=== PATIENT | female | born 1945 | race Caucasian/White ===

== ENCOUNTER 2016-04-01 21:27 | Observation (INO) | payer OTHER ==
[~2016-04-01] VITALS: Ht 170.2 cm; Wt 87.8 kg
[2016-04-01] MEDS ORDERED: ESCI10TA17 PO (22:01)
[2016-04-01] MEDS ORDERED: ATOR-22 PO (22:01)
[2016-04-01] MEDS ORDERED: CLOP1TAB15 PO (22:01)
[2016-04-01] MEDS ORDERED: LEVO112T2 PO (22:01)
[2016-04-01] MEDS ORDERED: BUPR-79 PO (22:01)
[2016-04-01] MEDS ORDERED: GLUCTAB6 PO (22:02)
--- NOTE | 2016-04-01 22:14 | EMERGENCY ROOM VISIT NOTE ---
History Report prepared by Cheri: Jose Holly Under the Supervision of: Dr. Jose Bar M.D. First contact with patient: 21:59 Chief Complaint: STROKE SYMPTOMS Stated Complaint: NUMBNESS/TINGLING, HX OF STROKE Nursing Triage Summary: pt states she was in the shower and go water in her right eye then while brushing her teeth she got tingling to right lip area " like novacaine." no weakness or pain smile equal. ambulates and speaks without difficulty. History of Present Illness The patient is a 70 year old female who presents to the Emergency Room with complaints of an episode of stroke like symptoms occurring about 7 hours ago. She notes she was taking a shower and got water in her right eye. Afterwards, when she was brushing her teeth, she started to experience eye pain. She applied a cool washcloth but her eye felt hot. The patient denies any numbness but admits to some tingling around the right side of her lips. She also has a headache. She denies any chest pain, shortness of breath, or numbness or weakness in her arms or legs but notes a warm spot on the left lower leg. The patient reports a history of brain hemorrhage and TIA and takes Plavix. She is sometimes unsteady when walking. Her last fall was about a few months ago. Source of History: patient, family Onset: about 7 hours ago Position: other (global) Quality: other (stroke-like symptoms) Timing: other (episode) Associated Symptoms: + headache, + numbness (right side of lips), No SOB, No chest pain, No weakness Review of Systems See HPI for pertinent positives & negatives. A total of 10 systems reviewed and were otherwise negative. Past Medical & Surgical Medical Problems: (1) History of intracranial hemorrhage (2) History of stroke Old medical records were reviewed. Nurse's notes were reviewed and I agree with. Previous hemorrhagic CVA as well as TIA. on Plavix Family History No pertinent family history stated. Social History Smoking Status: Never Smoker Drug Use: none Marital Status: single Current/Historical Medications Scheduled Atorvastatin (Lipitor), 20 MG PO HS Bupropion (Wellbutrin Sr), 150 MG PO BID Clopidogrel (Plavix), 75 MG PO QAM Escitalopram (Lexapro), 10 MG PO DAILY Ymybmocgdib-Apzbaqckkba-Yaq-Vi (Flexi Joint), 1 TAB PO DAILY Levothyroxine Sodium (Synthroid), 112 MCG PO DAILYBB Allergies Coded Allergies: Erythromycin (Verified Allergy, Intermediate, N/V/ABD PAIN, 04/01/16) Physical Exam Vital Signs Date Time Temp Pulse Resp B/P Pulse Ox O2 Delivery O2 Flow Rate FiO2 04/01/16 23:15 67 19 160/96 98 Room Air 04/01/16 22:25 63 04/01/16 21:32 37.0 95 18 167/96 96 Room Air Physical Exam General: Non ill appearing female in no acute distress. Alert and oriented x3. Able to speak and swallow without difficulty. HEENT: Normal cephalic atraumatic. Pupils are equal round and reactive to light. Scleara anicteric. Extraocular movements are intact. Oropharynx is pink with moist mucous membranes. No swelling of the mouth lips or tongue. Neck: Supple with a midline trachea. No meningeal signs or stiffness, no JVD or bruits. No Stridor. Chest: Clear to auscultation bilaterally. No wheezes or rhonchi. No increased work of breathing. Heart: regular rate and rhythm. Abdomen: Soft nontender, nondistended without rebound guarding or rigidity. Extremities: No cyanosis clubbing or edema. No calf tenderness or assymetry Spine/Back. Non tender to palpation. No CVA tenderness Skin: Good turgor without rashes. Neurologic exam: Cranial nerves two through 12 are intact. Motor and sensation are intact and symmetrical throughout. Finger to nose intact; no pronator drift or tremor. Sensation intact to light touch around right lip but patient says she feels tingling. Able to ambulate without difficulty. Normal heel to toe. Negative Romberg. Medical Decision & Procedures ER Provider Diagnostic Interpretation: X ray results as stated below per my interpretation and radiologist interpretation. Other radiology results as stated below per my review and radiologist interpretation: CT OF THE HEAD WITHOUT CONTRAST FINDINGS: No acute intracranial hemorrhage, midline shift or mass effect is present. Encephalomalacia within the right parietal lobe suggests old infarct. Scattered white matter hypodensities suggest small vessel disease. There are no CT findings to suggest acute dural sinus thrombosis or acute territorial infarct. Ventricular system is normal. Basilar cisterns are patent. There are no extra-axial collections. Visualized portions of the sinuses and mastoid air cells are clear. There are no significant calvarial abnormalities. IMPRESSION: 1. No acute intracranial findings. 2. Old right parietal lobe infarct. 3. White matter hypodensities suggestive of small vessel disease. Electronically signed by: Fred Ruggiero M.D. 04/01/2016 10:39 PM Dictated Date/Time: 04/01/2016 10:35 PM CHEST ONE VIEW PORTABLE FINDINGS: Lung volumes are normal. No consolidation is identified. There is no pneumothorax or pleural effusion. Cardiac size is at the upper limits of normal. There is no evidence of pulmonary edema. IMPRESSION: No acute cardiopulmonary findings. Electronically signed by: Fred Ruggiero M.D. 04/01/2016 10:33 PM Dictated Date/Time: 04/01/2016 10:32 PM Laboratory Results 04/01/16 22:15 Red Blood Count 4.44, Mean Corpuscular Volume 86.5, Mean Corpuscular Hemoglobin 30.0, Mean Corpuscular Hemoglobin Concent 34.6, Mean Platelet Volume 9.8, Neutrophils (%) (Auto) 48.2, Lymphocytes (%) (Auto) 43.3, Monocytes (%) (Auto) 6.5, Eosinophils (%) (Auto) 1.4, Basophils (%) (Auto) 0.3, Neutrophils # (Auto) 4.86, Lymphocytes # (Auto) 4.36, Monocytes # (Auto) 0.66, Eosinophils # (Auto) 0.14, Basophils # (Auto) 0.03 04/01/16 22:15 Test 04/01/16 22:15 04/01/16 22:21 04/02/16 00:20 White Blood Count 10.08 K/uL (4.8-10.8) Red Blood Count 4.44 M/uL (4.2-5.4) Hemoglobin 13.3 g/dL (12.0-16.0) Hematocrit 38.4 % (37-47) Mean Corpuscular Volume 86.5 fL (80-100) Mean Corpuscular Hemoglobin 30.0 pg (25-34) Mean Corpuscular Hemoglobin Concent 34.6 g/dl (32-36) Platelet Count 223 K/uL (130-400) Mean Platelet Volume 9.8 fL (7.4-10.4) Neutrophils (%) (Auto) 48.2 % Lymphocytes (%) (Auto) 43.3 % Monocytes (%) (Auto) 6.5 % Eosinophils (%) (Auto) 1.4 % Basophils (%) (Auto) 0.3 % Neutrophils # (Auto) 4.86 K/uL (1.4-6.5) Lymphocytes # (Auto) 4.36 K/uL (1.2-3.4) Monocytes # (Auto) 0.66 K/uL (0.11-0.59) Eosinophils # (Auto) 0.14 K/uL (0-0.5) Basophils # (Auto) 0.03 K/uL (0-0.2) RDW Standard Deviation 41.9 fL (36.4-46.3) RDW Coefficient of Variation 13.1 % (11.5-14.5) Immature Granulocyte % (Auto) 0.3 % Immature Granulocyte # (Auto) 0.03 K/uL (0.00-0.02) Prothrombin Time 10.5 SECONDS (9.0-12.0) Prothromb Time International Ratio 1.0 (0.9-1.1) Activated Partial Thromboplast Time 28.9 SECONDS (21.0-31.0) Partial Thromboplastin Ratio 1.1 Anion Gap 8.0 mmol/L (3-11) Est Creatinine Clear Calc Drug Dose 62.7 ml/min Estimated GFR () 69.9 Estimated GFR (Non- 60.3 BUN/Creatinine Ratio 18.1 (10-20) Calcium Level 9.0 mg/dl (8.5-10.1) Total Bilirubin 0.3 mg/dl (0.2-1) Direct Bilirubin < 0.1 mg/dl (0-0.2) Aspartate Amino Transf (AST/SGOT) 16 U/L (15-37) Alanine Aminotransferase (ALT/SGPT) 20 U/L (12-78) Alkaline Phosphatase 104 U/L (45-117) Total Protein 7.4 gm/dl (6.4-8.2) Albumin 3.6 gm/dl (3.4-5.0) Lipase 447 U/L (73-393) Bedside Troponin I 0.000 ng/ml (0-0.045) Laboratory studies as stated above per my review. Medications Administered Medications (Trade) Dose Ordered Sig/Velia Route Start Time Stop Time Status Last Admin Dose Admin Aspirin (Aspirin Chew) 324 mg NOW STAT PO 04/01/16 23:28 04/01/16 23:29 DC 04/01/16 23:47 324 MG ECG Indication: other (stroke symptoms) Rate (beats per minute): 63 Rhythm: normal sinus Findings: RBBB (incomplete), other (LVH) Comparison ECG Date: no prior available ED Course 2199: Past medical records reviewed. The patient was evaluated in room A11A, and a complete history and physical examination were performed. 2328: Ordered Aspirin 324 mg PO. 2330: I reassessed the patient. She is feeling good but has some residual numbness around her mouth. 233: I spoke with Dr. Tucker about the patient's case. The patient will be further managed and evaluated for disposition. Medical Decision Differentials include CVA, ICH, TIA, electrolyte or metabolic abnormality, and infection. This patient comes in as described above. She was placed in room A 11. She's been having tingling in the right side of her face since this afternoon. She is multiple hours out and well outside of any TPA window. Additionally, her symptoms are very very mild and she's had a history of hemorrhagic CVA. She looks well on exam .she has no neurologic deficits with exception of some subjective tingling around her lips on the right side only and into the cheek. IV access was established, EKG was obtained as well as CAT scan head and chest x -ray. CAT scan of her head shows no acute findings. There is no acute electrolyte or metabolic abnormalities to explain her symptoms on her blood work. EKG does not show any acute ischemic changes or arrhythmia. Chest x-ray does not show CHF, pneumonia, or pneumothorax. She looks well. She was given chewable aspirin 325 mg. Her symptoms have gotten better but still persist I'm concerned she may have had a small stroke. She has not had any stroke workup for several years now and will likely need MRI and carotids and possibly further adjustment of her meds and anticoagulation. I did consult Dr. Tsai , who will see her in the ER, and admit her for these measures. Consults Time Called: [phone] Consulting Physician: Dr. Tucker Returned Call: [phone] Tucker about the patient's case. The patient will be further managed and evaluated for disposition. Impression Primary Impression: CVA (cerebral vascular accident) Additional Impression: Tingling Scribe Attestation The scribe's documentation has been prepared under my direction and personally reviewed by me in its entirety. I confirm that the note above accurately reflects all work, treatment, procedures, and medical decision making performed by me. Departure Information Dispostion Being Evaluated By Hospitalist Referrals Veronica Magana (PCP) Patient Instructions My [facility] Health Problem Qualifiers
--- NOTE | 2016-04-01 22:35 | DIAGNOSTIC IMAGING REPORT ---
CHEST ONE VIEW PORTABLE CLINICAL HISTORY: Chest pain. COMPARISON STUDY: Chest radiograph December 20, 2013. FINDINGS: Lung volumes are normal. No consolidation is identified. There is no pneumothorax or pleural effusion. Cardiac size is at the upper limits of normal. There is no evidence of pulmonary edema. IMPRESSION: No acute cardiopulmonary findings. Electronically signed by: Fred Ruggiero M.D. 04/01/2016 10:33 PM Dictated Date/Time: 04/01/2016 10:32 PM
[2016-04-01 22:38] LABS: BASO % 0.3 %; BASO ABS # 0.03 K/uL (0-0.2); COMPLETE YES; EOS % 1.4 %; HEMATOCRIT 38.4 % (37-47); IG% 0.3 %; LYMPH % 43.3 %; LYMPH ABS # 4.36 K/uL (1.2-3.4); MEAN CELL VOLUME 86.5 fL (80-100); MEAN CORPUSCULAR HGB CONC 34.6 g/dl (32-36); MEAN PLATELET VOLUME 9.8 fL (7.4-10.4); MONO % 6.5 %; NEUT % 48.2 %; PLATELET COUNT 223 K/uL (130-400); RED BLOOD COUNT 4.44 M/uL (4.2-5.4); WHITE BLOOD COUNT 10.08 K/uL (4.8-10.8)
--- NOTE | 2016-04-01 22:40 | DIAGNOSTIC IMAGING REPORT ---
CT OF THE HEAD WITHOUT CONTRAST CLINICAL HISTORY: Numbness and tingling. Evaluate for cerebrovascular accident. COMPARISON STUDY: No previous studies for comparison. CT DOSE: 638.56 mGycm TECHNIQUE: Helical axial images of the head were obtained without IV contrast. Automated exposure control was utilized for the study. FINDINGS: No acute intracranial hemorrhage, midline shift or mass effect is present. Encephalomalacia within the right parietal lobe suggests old infarct. Scattered white matter hypodensities suggest small vessel disease. There are no CT findings to suggest acute dural sinus thrombosis or acute territorial infarct. Ventricular system is normal. Basilar cisterns are patent. There are no extra-axial collections. Visualized portions of the sinuses and mastoid air cells are clear. There are no significant calvarial abnormalities. IMPRESSION: 1. No acute intracranial findings. 2. Old right parietal lobe infarct. 3. White matter hypodensities suggestive of small vessel disease. Electronically signed by: Fred Ruggiero M.D. 04/01/2016 10:39 PM Dictated Date/Time: 04/01/2016 10:35 PM
[2016-04-01 22:54] LABS: PARTIAL THROMBOPLASTIN RATIO 1.1; PROTHROMBIN TIME (PATIENT) 10.5 SECONDS (9.0-12.0)
[2016-04-01 22:55] LABS: ALT/SGPT 20 U/L (12-78); BLOOD UREA NITROGEN 17 mg/dl (7-18); BUN/CREATININE RATIO 18.1 (10-20); CARBON DIOXIDE 25 mmol/L (21-32); CHLORIDE 107 mmol/L (98-107); CREATININE 0.96 mg/dl (0.60-1.20); GLUCOSE 81 mg/dl (70-99); POTASSIUM 3.6 mmol/L (3.5-5.1); SODIUM 140 mmol/L (136-145)
[2016-04-01 22:58] LABS: ALKALINE PHOSPHATASE 104 U/L (45-117); AST/SGOT 16 U/L (15-37)
[2016-04-01] MEDS ORDERED: ASPIRIN 81 MG CHEW PO STA (23:28)
[2016-04-02] MEDS ORDERED: POTASSIUM CHLORIDE 10 MEQ TABCR PO STA (00:20)
[2016-04-02] MEDS ORDERED: LACTATED RINGER'S 1000ML 1,000 ML IV ONE (00:30)
[2016-04-02 00:42] LABS: MAGNESIUM 2.1 mg/dl (1.8-2.4)
[2016-04-02] MEDS ORDERED: IV FLUIDS COMPLETED PRN (01:30)
[2016-04-02] MEDS ORDERED: LORAZEPAM 2 MG/ML 1 ML VIAL IV PRN (01:45)
[2016-04-02] MEDS ORDERED: TRAMADOL HCL 50 MG TAB PO PRN (01:45)
[2016-04-02] MEDS ORDERED: ACETAMINOPHEN 325 MG TAB PO PRN (01:45)
[2016-04-02] MEDS ORDERED: ONDANSETRON INJ 2 MG/ML 2 ML VIAL IV PRN (01:45)
[2016-04-02] MEDS ORDERED: PHARMACIST DISCHARGE MED REC CONSULT PRN (01:45)
[2016-04-02] MEDS ORDERED: NITROGLYCERIN 0.4 MG SL PER TAB CHARGE SL PRN (01:45)
[2016-04-02] MEDS ORDERED: HYDROmorphone INJ 0.5 MG/0.5 ML SYR IV PRN (01:45)
[2016-04-02 04:00] VITALS: BP 124/70; PULSE 61; TEMP 36.3; O2SAT 96; Ht 170.2 cm; Wt 87.8 kg
[2016-04-02 05:55] LABS: BASO % 0.3 %; BASO ABS # 0.02 K/uL (0-0.2); COMPLETE YES; EOS % 2.1 %; HEMATOCRIT 37.1 % (37-47); IG% 0.1 %; LYMPH % 39.1 %; LYMPH ABS # 2.64 K/uL (1.2-3.4); MEAN CELL VOLUME 87.3 fL (80-100); MEAN CORPUSCULAR HEMOGLOBIN 29.6 pg (25-34); MEAN PLATELET VOLUME 9.8 fL (7.4-10.4); MONO % 7.7 %; NEUT % 50.7 %; PLATELET COUNT 198 K/uL (130-400); RED BLOOD COUNT 4.25 M/uL (4.2-5.4); WHITE BLOOD COUNT 6.76 K/uL (4.8-10.8)
[2016-04-02] MEDS ORDERED: LEVOTHYROXINE 112 MCG TAB PO SCH (06:00)
[2016-04-02 06:27] LABS: BUN/CREATININE RATIO 19.1 (10-20); CALCIUM 8.7 mg/dl (8.5-10.1); CREATININE 0.9 mg/dl (0.60-1.20)
[2016-04-02 08:00] VITALS: O2SAT 95
[2016-04-02 08:23] VITALS: BP 145/74; PULSE 92; TEMP 36.4; O2SAT 95
--- NOTE | 2016-04-02 08:36 | HISTORY & PHYSICAL EXAMINATION ---
DATE OF ADMISSION: 04/02/2016 NOTICE TO RECEIVING [employer]/AGENCY This information is strictly Confidential and protected under [place] law. [place] law prohibits you from making any further disclosure of this information unless further disclosure is expressly permitted by the written consent of the person to whom it pertains or is authorized by law. A general authorization for the release of medical or other information is not sufficient for this purpose. Hospital accepts no responsibility if the information is made available to any other person, INCLUDING THE PATIENT. PRIMARY CARE DOCTOR: KADE Bland. Hx obtained from px and records. CHIEF COMPLAINT: Numbness on the right face. HISTORY OF PRESENT ILLNESS: Medical history significant for depression, hypothyroidism, history of TIA as per records, history of traumatic intracranial hemorrhage, past tobacco abuse. hypothyroidism. Yesterday afternoon patient noted some right eye discomfort during her shower. She noted right mid facial numbness and going on her lip as well. No chest pain, no shortness of breath, no headache. No blurred vision. No previous episodes. At the Emergency Room the patient given aspirin. Symptoms improving. MEDICAL HISTORY: As above. Confinement at [facility] in June 2012 for traumatic intraparenchymal intracranial hemorrhage, history of fall, patient had left-sided weakness. No operative intervention. In 2013 history of TIA; transient left-sided weakness requiring confinement at [facility]. SURGERIES: She has had tonsillectomy, adenoidectomy, ovarian cyst drainage, cholecystectomy. HOME MEDICATIONS: Lipitor, Wellbutrin, Plavix, Lexapro, glucosamine, Synthroid. ALLERGIES: ERYTHROMYCIN. FAMILY HISTORY: Lung cancer, high blood pressure, heart disease, diabetes, oral cancer. PERSONAL AND SOCIAL HISTORY: Past tobacco abuse. No chronic intake of alcoholic beverages. 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 REVIEW OF SYSTEMS: as per HPI. Admits to depression not being well, crying all the time, denies suicidal ideation. All other ROS negative. PHYSICAL EXAMINATION: VITAL SIGNS: Blood pressure was noted to be 160/96, pulse rate 95, RR 17, sats 98 on room air. GENERAL: Noted to be obese, slightly anxious, occ tearful SKIN: Normal. HEENT : pink palpebral conjunctivae, dry mucosa. NECK: No JVD. supple CHEST: Clear to auscultation. HEART: Regular rate and rhythm. ABDOMEN: Soft. EXTREMITIES: No edema, no tenderness. NEUROLOGIC: No gross focality. LABS: Hemoglobin was noted to be 12, hematocrit 38, white cell count is 10, platelets 223. Sodium was noted to be 142, potassium 3.6, chloride 105, BUN 70, creatinine 0.9, glucose was noted to be 81. trop 0 CT head old right parietal lobe infarct. Chest x-ray showed cardiac size upper limits of normal. EKG showed 65, normal sinus rhythm, incomplete right bundle branch block, LVH, poor R-wave progression. ASSESSMENT: 1. Transient right facial numbness symptoms possible recurrent TIA 2. hx traumatic intracranial hemorrhage as per records. 3. Hypertensive urgency secondary to intracranial process possible chronic hypertension with cardiomegaly, LVH on CXR and EKG, respectively. 3. Depression, not well as per px. 4. Past tobacco abuse. PLAN: Observation PCU. neurochecks Continue Plavix for now. MRI/MRA of the brain. May need additional workup/Neuro consult if MRI shows stroke. Permissive hypertension until stroke ruled out. May need maintenance medication for BP at some point. Psych consult, depression. DVT prophylaxis, Lovenox subQ. Full code. MTDD
[2016-04-02] MEDS ORDERED: CLOPIDOGREL BISULFATE 75 MG TAB PO SCH (09:00)
[2016-04-02] MEDS ORDERED: ENOXAPARIN 40 MG/0.4 ML SYR SC SCH (09:00)
[2016-04-02] MEDS ORDERED: ESCITALOPRAM OXALATE 10 MG TAB PO SCH (09:00)
[2016-04-02] MEDS ORDERED: BuPROPion SR 150 MG TABCR PO SCH (09:00)
[2016-04-02 09:35] LABS: CHOLESTEROL/HDL RATIO 2.2
--- NOTE | 2016-04-02 09:43 | DIAGNOSTIC IMAGING REPORT ---
Brain MRA HISTORY: Stroke symptoms. TECHNIQUE: 3-D [id number] MRA of the brain was performed without contrast. COMPARISON STUDY: None. FINDINGS: Visualized intracranial internal carotid arteries, distal vertebral arteries, and basilar artery are widely patent. There is no significant stenosis, occlusion, or aneurysm seen within the bilateral ACAs, MCAs, or candle wicker. Incidental note is made of a slightly hypoplastic distal right vertebral artery and left P1 segment. The left WAITER/WAITRESS COUNTER is fed primarily through the left posterior communicating artery. IMPRESSION: No significant stenosis, occlusion, or aneurysm within the [place] of [place]. Electronically signed by: Anant Brennan M.D. 04/02/2016 9:42 AM Dictated Date/Time: 04/02/2016 9:38 AM
--- NOTE | 2016-04-02 10:09 | DIAGNOSTIC IMAGING REPORT ---
MRI OF THE BRAIN WITHOUT IV CONTRAST CLINICAL HISTORY: Strokelike symptoms. Numbness and tingling. COMPARISON STUDY: CT of the brain dated 04/01/2016. TECHNIQUE: MRI of the brain was performed utilizing various T1 and T2-weighted sequences in the axial, sagittal, and coronal planes. IV contrast was not administered for this examination. The examination is degraded by motion artifact. FINDINGS: Brain parenchyma: There are age-related involutional changes noting moderate patchy subcortical and periventricular microangiopathic disease. Right posterior parietal and septal malacia is consistent with a remote infarct. Chronic lacunar infarcts are seen in both cerebellar hemispheres. There is no hemorrhage or mass effect. There is no restricted diffusion to suggest acute ischemia. Camacho-white matter differentiation is preserved. No extra-axial fluid collection is seen. The cerebellar tonsils are normal in configuration. Ventricles, sulci, and cisterns: Prominent secondary to involutional change. Pituitary and sella: Partially empty sella is incidentally noted. Intracranial vasculature: Normal flow voids are maintained at the skull base. Orbits: The bony orbits are grossly intact. Orbital contents are normal in appearance. Sinuses and mastoids: Clear. Calvarium: Unremarkable. Cervical cord: Partially visualized cervical spinal cord is normal in morphology and signal intensity. IMPRESSION: Senescent changes and remote infarcts as above. There is no acute intracranial abnormality. Electronically signed by: Lalit Nair M.D. 04/02/2016 10:08 AM Dictated Date/Time: 04/02/2016 10:05 AM
--- NOTE | 2016-04-02 10:17 | Progress Note ---
Subjective Date of Service: Apr 02, 2016. Subjective Pt evaluation today including: conversation w/ patient, physical exam, lab review, review of studies, review of inpatient medication list Saw/examined the patient in room 204 Doing well today Presented with some facial numbness/tingling; which has since resolved No other residual symptoms to note Problem List Medical Problems: (1) CVA (cerebral vascular accident) Status: Acute (2) Tingling Status: Acute Review of Systems Constitutional: No weakness Respiratory: No cough, No shortness of breath, No sputum Cardiac: No chest pain Abdomen: No diarrhea, No nausea, No pain, No vomiting Neurologic: No balance problems, No memory loss, No numbness/tingling (resolved ), No paralysis, No vertigo, No weakness Heme: No abnormal bleeding/bruising Medications Current Inpatient Medications Medications (Trade) Dose Ordered Sig/Velia Route Start Time Stop Time Status Last Admin Dose Admin Lactated Ringer's (Lr 1000ml) 1,000 ml @ 75 mls/hr [id number] ONCE IV 04/02/16 00:30 04/02/16 13:49 04/02/16 00:49 75 MLS/HR Miscellaneous (Iv Fluids Completed) 1 ea PRN PRN N/A 04/02/16 01:30 04/02/17 01:29 Enoxaparin Sodium (Lovenox Inj) 40 mg Q24H SC 04/02/16 09:00 05/02/16 08:59 Acetaminophen (Tylenol Tab) 650 mg Q4H PRN PO 04/02/16 01:45 05/02/16 01:44 Nitroglycerin (Nitrostat Tab) 0.4 mg UD PRN SL 04/02/16 01:45 05/02/16 01:44 Miscellaneous Information (Pharmacist Discharge Med Rec Consult) 1 ea UD PRN N/A 04/02/16 01:45 05/02/16 01:44 Ondansetron HCl (Zofran Inj) 4 mg Q6H PRN IV 04/02/16 01:45 05/02/16 01:44 Tramadol HCl (Ultram Tab) 25 mg Q6H PRN PO 04/02/16 01:45 05/02/16 01:44 Hydromorphone HCl (Dilaudid Inj) 0.5 mg Q3H PRN IV 04/02/16 01:45 04/16/16 01:44 Lorazepam (Ativan Inj) 0.5 mg Q4H PRN IV 04/02/16 01:45 05/02/16 01:44 Atorvastatin Calcium (Lipitor Tab) 20 mg HS PO 04/02/16 21:00 05/02/16 20:59 Bupropion HCl (Wellbutrin-Sr Tab) 150 mg BID PO 04/02/16 09:00 05/02/16 08:59 Clopidogrel Bisulfate (plAVix TAB) 75 mg QAM PO 04/02/16 09:00 05/02/16 08:59 Escitalopram Oxalate (Lexapro Tab) 10 mg DAILY PO 04/02/16 09:00 05/02/16 08:59 Levothyroxine Sodium (Synthroid Tab) 112 mcg DAILYBB PO 04/02/16 06:00 05/02/16 06:59 04/02/16 08:31 112 MCG Objective Vital Signs Date Time Temp Pulse Resp B/P Pulse Ox O2 Delivery O2 Flow Rate FiO2 04/02/16 08:23 36.4 92 16 145/74 95 Room Air 04/02/16 08:00 95 Room Air 04/02/16 04:00 36.3 61 16 124/70 96 Room Air 04/02/16 03:37 82 18 156/75 96 Room Air 04/02/16 01:40 68 18 151/84 98 Room Air 04/01/16 23:15 67 19 160/96 98 Room Air 04/01/16 22:25 63 04/01/16 21:32 37.0 95 18 167/96 96 Room Air Physical Exam General Appearance: no apparent distress Eyes: normal inspection Respiratory/Chest: lungs clear, normal breath sounds, no respiratory distress, no accessory muscle use Cardiovascular: regular rate, rhythm, no edema, no murmur Abdomen: normal bowel sounds, non tender, soft Extremities: normal inspection, no pedal edema 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, no motor/sensory deficits, alert, normal mood/affect, oriented x 3 Skin: normal color Lymphatic: no adenopathy Laboratory Results Last 24 Hours Test 04/01/16 22:15 04/01/16 22:21 04/02/16 05:19 White Blood Count 10.08 K/uL 6.76 K/uL Red Blood Count 4.44 M/uL 4.25 M/uL Hemoglobin 13.3 g/dL 12.6 g/dL Hematocrit 38.4 % 37.1 % Mean Corpuscular Volume 86.5 fL 87.3 fL Mean Corpuscular Hemoglobin 30.0 pg 29.6 pg Mean Corpuscular Hemoglobin Concent 34.6 g/dl 34.0 g/dl Platelet Count 223 K/uL 198 K/uL Mean Platelet Volume 9.8 fL 9.8 fL Neutrophils (%) (Auto) 48.2 % 50.7 % Lymphocytes (%) (Auto) 43.3 % 39.1 % Monocytes (%) (Auto) 6.5 % 7.7 % Eosinophils (%) (Auto) 1.4 % 2.1 % Basophils (%) (Auto) 0.3 % 0.3 % Neutrophils # (Auto) 4.86 K/uL 3.43 K/uL Lymphocytes # (Auto) 4.36 K/uL 2.64 K/uL Monocytes # (Auto) 0.66 K/uL 0.52 K/uL Eosinophils # (Auto) 0.14 K/uL 0.14 K/uL Basophils # (Auto) 0.03 K/uL 0.02 K/uL RDW Standard Deviation 41.9 fL 41.9 fL RDW Coefficient of Variation 13.1 % 13.1 % Immature Granulocyte % (Auto) 0.3 % 0.1 % Immature Granulocyte # (Auto) 0.03 K/uL 0.01 K/uL Prothrombin Time 10.5 SECONDS Prothromb Time International Ratio 1.0 Activated Partial Thromboplast Time 28.9 SECONDS Partial Thromboplastin Ratio 1.1 Sodium Level 140 mmol/L 142 mmol/L Potassium Level 3.6 mmol/L 4.0 mmol/L Chloride Level 107 mmol/L 109 mmol/L Carbon Dioxide Level 25 mmol/L 24 mmol/L Anion Gap 8.0 mmol/L 9.0 mmol/L Blood Urea Nitrogen 17 mg/dl 17 mg/dl Creatinine 0.96 mg/dl 0.90 mg/dl Est Creatinine Clear Calc Drug Dose 62.7 ml/min 66.8 ml/min Estimated GFR () 69.9 75.6 Estimated GFR (Non- 60.3 65.2 BUN/Creatinine Ratio 18.1 19.1 Random Glucose 81 mg/dl 89 mg/dl Calcium Level 9.0 mg/dl 8.7 mg/dl Magnesium Level 2.1 mg/dl Total Bilirubin 0.3 mg/dl Direct Bilirubin < 0.1 mg/dl Aspartate Amino Transf (AST/SGOT) 16 U/L Alanine Aminotransferase (ALT/SGPT) 20 U/L Alkaline Phosphatase 104 U/L Total Protein 7.4 gm/dl Albumin 3.6 gm/dl Lipase 447 U/L Thyroid Stimulating Hormone (TSH) 1.430 uIu/ml Bedside Troponin I 0.000 ng/ml Triglycerides Level 126 mg/dl Cholesterol Level 148 mg/dl HDL Cholesterol 67 mg/dl LDL Cholesterol, Calculated 56 mg/dl VLDL Cholesterol, Calculated 25 mg/dl Cholesterol/HDL Ratio 2.2 Assessment and Plan This is a 70 year old female with PMH of traumatic intracranial hemorrhage, hx. of TIA, hypothyroidism, depression presents with transient facial tingling Transient Facial Tingling during shower, patient felt numbness/tingling of lips, right eye symptoms have since resolved No similar to her previous TIA symptoms Head CT = negative Brain MRI/MRA = no acute findings patient already taking Plavix for previous TIA would be weary of doing dual antiplatelet therapy due to previous intracranial hemorrhage Continue Plavix, statin PT/OT discharge home today once PT/OT evals are performed Hypothyroidism TSH wnl continue synthroid Depression Psych consultation pending For now continue wellbutrin and Lexapro at current doses DVT ppx Lovenox FULL CODE
[2016-04-02 11:15] VITALS: BP 139/74; PULSE 62; TEMP 36.5; O2SAT 97
--- NOTE | 2016-04-02 14:53 | CONSULTATION REPORT ---
DATE OF CONSULTATION: 04/02/2016 IDENTIFYING DATA: Jennifer Fleming is a 70-year-old woman from [place], [place], admitted to the medical floor with symptoms of facial numbness in the context of a history of stroke and TIAs. We are consulted to evaluate depression. Information is gathered from the patient, medical record and all considered to be reliable. CHIEF COMPLAINT: "Depression." HISTORY OF PRESENT ILLNESS: Jennifer Fleming is a 70-year-old woman with medical history significant for hypothyroidism, TIAs, traumatic intracranial hemorrhage and past tobacco use, who presented to the Emergency Room with symptoms of right eye discomfort and facial numbness. We are consulted because the patient reports ongoing symptoms of depression, unrelieved by her current medication regimen. She indicates that she has been taking both Wellbutrin and Lexapro, low dose for years. She has been depressed due to the of her mother several years ago. She and her mother had been very close, and her mother quite suddenly. She also has had some recent stressors including the breakup of a 9-year relationship. She is currently dating somebody that she met online, has not met him and her family is skeptical that he is not what he presents. She indicates that her mood today is 9/10 with 10 being the best, mostly related to the fact they have told her that there has been no acute event. Over the last 2 weeks though, her mood has been more like 5 or 6/10, feeling depressed. She reports low energy, but says that this is chronic. 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 She gets 6-7 hours of sleep per night. She does have racing worried thoughts, but denies that this has been a chronic lifetime issue. She denies panic attacks. She denies any symptoms of OCD. She denies auditory or visual hallucinations. She denies any symptoms that would be congruent with a bipolar disorder. CURRENT MEDICATIONS: 1. Lipitor 20 mg at bedtime. 2. Lovenox 40 mg q. 24 hours. 3. Wellbutrin-SR 150 mg b.i.d. 4. Plavix 75 mg q.a.m. 5. Lexapro 10 mg daily. 6. Synthroid 112 mcg daily. 7. Ativan, tramadol, ondansetron and nitro p.r.n. PAST PSYCHIATRIC HISTORY: The patient has never seen a psychiatric prescriber. She did see a therapist, Randy Thurman, in [place] during the summer of 2015, but did not feel that that was helpful and stopped going. She has never been hospitalized for mental health reasons. She has never made a suicide attempt. There is no evidence of violence to self or others in the last 6 months. PRIOR MEDICATION TRIALS: Paxil -- cross tapered to Lexapro after her sister told her she should not take Paxil. ACCESS TO GUNS: Denies. ALLERGIES: ERYTHROMYCIN -- NAUSEA, VOMITING AND ABDOMINAL PAIN. PAST MEDICAL HISTORY: 1. Hypothyroidism. 2. History of traumatic brain bleed. 3. TIAs. 4. Dyslipidemia. 5. Tobacco use -- former smoker. FAMILY HISTORY: Denies for psychiatric issues, substance use or suicide. There is family history for diabetes, hypertension, cardiovascular disease, lung cancer and oral cancer. SUBSTANCE ABUSE HISTORY: In the last year, she reports that her alcohol use is "very sporadic" and cannot remember when she last consumed alcohol. She denies the use of street drugs, organic substances, inhalants, abuse of over the counter medicines or prescription medicines now or at any time in the past. PERSONAL HISTORY: The patient grew up in the [facility]. She is a high school graduate. 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 She had been , in 2004. She has 2 children and multiple grandchildren. She does consider herself to be a spiritual individual. There are no legal concerns. Psychological trauma history is denied. MENTAL STATUS EXAMINATION: A 70-year-old woman with short mendoza hair, dressed in a T-shirt and pajama pants. She is alert and cooperative with the interview. She makes good eye contact. Motor behavior is unremarkable and there is no evidence of abnormal muscle movements. Speech is of normal rate, volume, and tone. Affect is flat and mood congruent. Mood is depressed. Thought process is organized and goal directed. She denies thought disorder in the form of hallucinations or delusions. She denies thoughts, plans, or intent to harm herself or anyone else. Today, she is fully oriented. Memory functions are intact. Fund of knowledge is intact. Intelligence is estimated to be average. Insight and judgment are good. VITAL SIGNS: Temp 36.5, pulse 62, respirations 16, blood pressure 139/74, and pulse ox 97% on room air. LABORATORIES: 1. CBC with diff -- within normal limits. 2. Chem profile -- notable only for chloride elevated at 109. 3. Lipid panel -- within normal limits. IMAGIN. Brain MRI -- senescent changes and remote infarcts. There is no acute intracranial abnormality. 2. Head MRA -- no significant stenosis, occlusion, or aneurysm within the [place]. REVIEW OF SYSTEMS: Complaints of some "wooziness" when she sits up, but denies room spinning dizziness or syncopal episodes. A minimum of 10 systems has been reviewed and otherwise found to be negative. PHYSICAL EXAMINATION: As per Dr. Serrato. IMPRESSION: A 70-year-old woman admitted to the hospital to rule out transient ischemic attack or stroke. We are consulted to evaluate depression. She has been on her current medications and doses for several years and at this point the easiest thing to do is increase Lexapro to 20 mg daily. This will benefit both her anxiety and her depression. She has had her medications prescribed by her PCP, who is a nurse practitioner whom she has seen for the last 5 years and feels quite close with. I think it would be alright to continue to have her medications prescribed by her FINANCIAL SERVICES ASSISTANT at this time. Discharge summary should be sent to her. The patient tells me she will be discharged today, so I will get that changed in the computer so that she will have a new prescription for 20 mg when she leaves. She does not meet criteria for inpatient mental health treatment. DIAGNOSES: 1. Major depressive disorder, recurrent, moderate. 2. Anxiety disorder, not otherwise specified. 3. Medical conditions as above. PLAN: Has been reviewed with Dr. Jenny Bustamante. 1. Depression. A. Continue Wellbutrin-SR 150 mg b.i.d. B. Increase Lexapro to 20 mg daily. I thank you for allowing us to participate in this woman's care.
[2016-04-02] MEDS ORDERED: LXP/20 PO (14:54)
--- NOTE | 2016-04-02 14:57 | Discharge Instructions ---
Discharge Instructions Admission Reason for Admission: TIA Discharge Discharge Diagnosis / Problem: Transient Facial Tingling, unlikely TIA Discharge Goals Goal(s): Decrease discomfort, Improve function, Diagnostic testing, Therapeutic intervention Activity Recommendations Activity Limitations: resume your previous activity . Instructions / Follow-Up Instructions / Follow-Up Please follow-up with your primary care physician Your dose of Lexapro is increased from 10mg to 20mg Current Hospital Diet Patient's current hospital diet: AHA Diet (Heart Healthy) Discharge Diet Recommended Diet: Regular Diet Pending Studies Studies pending at discharge: no Laboratory Results Lipid Panel Test 04/02/16 05:19 Range/Units Triglycerides Level 126 0-150 mg/dl Cholesterol Level 148 0-200 mg/dl HDL Cholesterol 67 mg/dl Cholesterol/HDL Ratio 2.2 LDL Cholesterol, Calculated 56 mg/dl Medical Emergencies . Who to Call and When: Medical Emergencies: If at any time you feel your situation is an emergency, please call 911 immediately. . Non-Emergent Contact Non-Emergency issues call your: Primary Care Provider . . "Provider Documentation" section prepared by Wilton Serrato. VTE Core Measure Inpt VTE Proph given/why not?: Enoxaparin (Lovenox)SQ
--- NOTE | 2016-04-02 15:00 | Discharge Summary ---
Discharge Summary Admission Date: Apr 02, 2016 at 01:07 Discharge Date: Apr 02, 2016 Discharge Disposition: Home Principal Diagnosis: Transient Facial Tingling Medication Reconciliation Changed Medications: Escitalopram Oxalate (Escitalopram Oxalate) 20 Mg Tab 20 MG PO DAILY for 30 Days, #30 TABS (Changed from: Escitalopram (Lexapro) 10 Mg Tab 10 Mg PO DAILY) Continued Medications: Atorvastatin (Lipitor) 20 Mg Tab 20 MG PO HS, TAB Bupropion (Wellbutrin Sr) 150 Mg Ertab 150 MG PO BID, TAB Clopidogrel (Plavix) 75 Mg Tab 75 MG PO QAM, TAB Jzifukplzan-Avqshuywczi-Kya-Vi (Flexi Joint) 1 Tab Tab 1 TAB PO DAILY Levothyroxine Sodium (Synthroid) 112 Mcg Tab 112 MCG PO DAILYBB, TAB Admission Information HPI (per Admitting provider): DATE OF ADMISSION: 04/02/2016 NOTICE TO RECEIVING GREEN PARTY/AGENCY This information is strictly Confidential and protected under [place] law. [place] law prohibits you from making any further disclosure of this information unless further disclosure is expressly permitted by the written consent of the person to whom it pertains or is authorized by law. A general authorization for the release of medical or other information is not sufficient for this purpose. Hospital accepts no responsibility if the information is made available to any other person, INCLUDING THE PATIENT. PRIMARY CARE DOCTOR: KADE Bland. CHIEF COMPLAINT: Numbness on the right face. HISTORY OF PRESENT ILLNESS: Medical history significant for depression, hypothyroidism, history of TIA as per records, history of traumatic intracranial hemorrhage, past tobacco abuse. Yesterday afternoon patient noted some right eye discomfort during her shower. She noted right mid facial numbness and going on her lip as well. No chest pain, no shortness of breath, no headache, no previous episodes in the past. At the Emergency Room the patient given aspirin. Symptoms improving. MEDICAL HISTORY: As above. Confinement at [facility] in June 2012 for traumatic intraparenchymal intracranial hemorrhage, history of fall, patient had left-sided weakness. In 2013 history of TIA, transient left-sided weakness requiring confinement at [facility]. Hypothyroidism. SURGERIES: She has had tonsillectomy, adenoidectomy, ovarian cyst drainage, cholecystectomy. HOME MEDICATIONS: Lipitor, Wellbutrin, Plavix, Lexapro, glucosamine, Synthroid. ALLERGIES: ERYTHROMYCIN. FAMILY HISTORY: Lung cancer, high blood pressure, heart disease, diabetes, oral cancer. PERSONAL AND SOCIAL HISTORY: Past tobacco abuse. No chronic intake of alcoholic beverages. Retired . REVIEW OF SYSTEMS: Admits to depression not being well, crying. Denies suicidal ideation. All other ROS negative. PHYSICAL EXAMINATION: VITAL SIGNS: Blood pressure was noted to be 160/96, pulse rate 95, RR 17, sats 98 on room air. GENERAL: Noted to be obese, slightly anxious, teary eyed. SKIN: Normal. Dry mucosa. NECK: No JVD. CHEST: Clear to auscultation. HEART: Regular rate and rhythm. ABDOMEN: Soft. EXTREMITIES: No edema, no tenderness. NEUROLOGIC: No gross focality. LABS: Hemoglobin was noted to be 12, hematocrit 38, white cell count is 10, platelets 223. Sodium was noted to be 142, potassium 3.6, chloride 105, BUN 70, creatinine 0.9, glucose was noted to be 81. CT head old right parietal lobe infarct. Chest x-ray showed cardiac size upper limits of normal. EKG showed 65, normal sinus rhythm, incomplete right bundle branch block, LVH, poor R-wave progression. ASSESSMENT: 1. Transient right facial numbness symptoms possible recurrent TIA 2. hx traumatic intracranial hemorrhage as per records. 3. Hypertensive urgency secondary to intracranial process possible chronic hypertension with cardiomegaly, LVH on CXR and EKG respectively. 3. Depression, not well as per px. 4. Past tobacco abuse. PLAN: Observation PCU. neurochecks Continue Plavix for now. MRI/MRA of the brain. May need additional workup/Neuro consult if MRI shows stroke. Permissive hypertension until stroke ruled out. May need maintenance medication for BP at some point. Psych consult, depression. DVT prophylaxis, Lovenox subQ. Full code. Hospital Course This is a 70 year old female with PMH of traumatic intracranial hemorrhage, hx. of TIA, hypothyroidism, depression presents with transient facial tingling Transient Facial Tingling during shower, patient felt numbness/tingling of lips, right eye symptoms have since resolved No similar to her previous TIA symptoms Head CT = negative Brain MRI/MRA = no acute findings patient already taking Plavix for previous TIA would be weary of doing dual antiplatelet therapy due to previous intracranial hemorrhage Continue Plavix, statin PT/OT discharge home today once PT/OT evals are performed Hypothyroidism TSH wnl continue synthroid Depression Psych consultation pending For now continue wellbutrin and Lexapro at current doses DVT ppx Lovenox FULL CODE Total time spent on discharge = 35 minutes This includes examination of the patient, discharge planning, medication reconciliation, and communication with other providers. Discharge Instructions Please follow-up with your primary care physician Your dose of Lexapro is increased from 10mg to 20mg
[2016-04-02 15:40] VITALS: BP 139/74; PULSE 62; TEMP 36.5; O2SAT 97
[2016-04-02] MEDS ORDERED: ATORVASTATIN 20 MG TAB PO SCH (21:00)
[2016-04-03] MEDS ORDERED: ESCITALOPRAM OXALATE 20 MG TAB PO SCH (09:00)
--- NOTE | 2016-04-11 08:50 | EDITING REQUIRED CODING QUERY ---
SUPPORTING DIAGNOSIS NEEDED A supporting diagnosis is required for the test/procedure performed on this patient in order for us to be reimbursed by the patient's insurance. Please provide a supporting diagnosis for the following test/procedure listed below next to the test name along with your signature. *If there is no additional diagnosis for this patient that would support the following test/procedure please document that below next to the test/procedure. Test(s)/Procedure(s) that require a supporting diagnosis: * MRA HEAD W/O CONTRAST DIAGNOSIS: * DOS: 04/02/16 Provider Signature: stroke Date: 04/16/16__ Thank you [facility] Information Management For questions please call [phone]
== END 2016-04-02 16:46 | disposition home or self-care (01) ==
LOC: ENRESERVDT → ENRESERVTM → C.EDB 21:28 → C.EDINP 04-02 01:07 → C.2E 04-02 04:32
PROVIDERS: ADMIT Internal Medicine; ATTEND Family Medicine
DX: R20.0 Anesthesia of skin (principal); I16.0 Hypertensive urgency; F33.1 Major depressive disorder, recurrent, moderate; E03.9 Hypothyroidism, unspecified; E78.5 Hyperlipidemia, unspecified; Z90.49 Acquired absence of other specified parts of digestive tract; Z79.01 Long term (current) use of anticoagulants; Z87.891 Personal history of nicotine dependence; Z83.3 Family history of diabetes mellitus; Z80.1 Family history of malignant neoplasm of trachea, bronchus and lung

== ENCOUNTER 2017-10-03 16:40 | Emergency (ER) | payer OTHER ==
[~2017-10-03] VITALS: Ht 170.2 cm; Wt 89.0 kg
[~2017-10-03 16:40] MED LIST: ATOR-22 PO; BUPR-79 PO; CLOP1TAB15 PO; GLUCTAB6 PO; LEVO112T2 PO; LXP/20 PO
[2017-10-03 16:46] VITALS: TEMP 36.6; Ht 170.2 cm; Wt 89.0 kg
[2017-10-03] MEDS ORDERED: ACETAMINOPHEN 500 MG TAB PO STA (16:57)
--- NOTE | 2017-10-03 17:18 | DIAGNOSTIC IMAGING REPORT ---
L KNEE 3 VIEWS CLINICAL HISTORY: 71 years-old Female presenting with left knee pain, fall. TECHNIQUE: Frontal, lateral, and sunrise views of the left knee were obtained. COMPARISON: None. FINDINGS: Knee joint congruent. Tricompartmental degenerative changes most severe in the medial compartment, where there is osteophytosis and mild to moderate joint space loss. Enthesophyte noted at the insertion of the quadriceps tendon. Suggestion of a small knee joint effusion. No patellar subluxation. No acute fracture or malalignment. IMPRESSION: 1. Tricompartmental degenerative changes most severe in the medial compartment. 2. No evidence of acute osseous injury. 3. Suspected knee joint effusion. Electronically signed by: Davide Murphy M.D. 10/03/2017 5:17 PM Dictated Date/Time: 10/03/2017 5:15 PM
--- NOTE | 2017-10-03 17:20 | DIAGNOSTIC IMAGING REPORT ---
R FOOT MIN 3 VIEWS ROUTINE CLINICAL HISTORY: 71 years-old Female presenting with right foot pain, fall. TECHNIQUE: Frontal, oblique, and lateral views the right foot were obtained. COMPARISON: None. FINDINGS: Mild diffuse soft tissue swelling suggested. Focal soft tissue swelling over the dorsum of the midfoot. Degenerative changes noted in the midfoot and also suggested at the ankle mortise. Small enthesophyte at the origin of the plantar fascia. No acute fracture or malalignment. Incidental note made of Symphalangism of the middle and distal phalanges of the fifth toe. IMPRESSION: 1. No acute osseous injury. 2. Degenerative changes in the midfoot. 3. Nonspecific soft tissue swelling. Electronically signed by: Davide Murphy M.D. 10/03/2017 5:18 PM Dictated Date/Time: 10/03/2017 5:17 PM
--- NOTE | 2017-10-03 17:34 | EMERGENCY ROOM VISIT NOTE ---
ED Visit Note First contact with patient: 16:51 Staff note: I have reviewed the Patients chart and have discussed this case with my PA. I generally agree with the ED note and findings.
--- NOTE | 2017-10-03 18:07 | DIAGNOSTIC IMAGING REPORT ---
L FOOT MIN 3 VIEWS ROUTINE CLINICAL HISTORY: 71 years-old Female presenting with left foot pain. TECHNIQUE: Frontal, oblique, and lateral views of the left foot were obtained. COMPARISON: Comparison made to plain radiographs of the right foot performed the same day. FINDINGS: Mild diffuse soft tissue swelling suggested. Osteopenia. Incidental no made of an os peroneum. Enthesophytes at the insertion of the Achilles tendon and origin of the plantar fascia. Osteophytosis at the midfoot-forefoot articulation. No acute fracture or malalignment. Incidental note made of symphalangism of the colon distal phalanges of the fifth toe. IMPRESSION: No acute osseous injury. Electronically signed by: Davide Murphy M.D. 10/03/2017 6:05 PM Dictated Date/Time: 10/03/2017 6:04 PM
[2017-10-03 18:23] VITALS: BP 148/93; PULSE 76; O2SAT 96
--- NOTE | 2017-10-03 18:29 | EMERGENCY ROOM VISIT NOTE ---
ED Visit Note First contact with patient: 16:51 CHIEF COMPLAINT: knee pain HISTORY OF PRESENT ILLNESS: This 71-year-old female patient presents to the emergency department, via wheelchair, complaining of right foot and left knee pain after suffering a mechanical fall at home this morning. Patient states her dog. In the hallway and she was walking down the [place] with flip-flops on. She slipped in the urine and fell, twisting her left knee and landing on what she believes to be her right ankle. The patient denies hitting her head. She denies any numbness or tingling, headache, dizziness, nausea, vomiting, syncope , or other injuries. The patient reports swelling of the left knee and right foot, but denies bruising. There is pain with attempts at ambulation or with palpation. They rate the pain as sharp and 10/10. The patient states they were able to walk on it, however it is extremely painful. No numbness or tingling. No previous injuries to this knee. The patient has taken no medications for pain. REVIEW OF SYSTEMS: A 6 system review of systems was completed with positives and pertinent negatives listed in the HPI. ALLERGIES: Erythromycin MEDICATIONS: Lipitor, Wellbutrin, Plavix, Lexapro, flexi joint, Synthroid PMH: Anxiety, depression, heart disease, hypothyroidism SOCIAL HISTORY: The patient lives locally with family. She denies drug, alcohol , tobacco use. PHYSICAL EXAM: Vital Signs: Reviewed Nurse's notes, vital signs stable. GENERAL : This is a 71-year-old white female, no acute distress, but appears in pain, well-developed, well-nourished. MENTAL STATUS: Alert, oriented to person place and time, and cooperative. MUSCULOSKELETAL: The left knee is mildly swollen. There is no ecchymosis. There is no obvious joint effusion present. The patient is tender on palpation of the inferior patella. There is no joint line tenderness. The patella does appropriately subluxate. Range of motion is full, however tender. Strength of the quads and hamstrings is 5/5. Keren's is negative. Tabby's and Anterior Drawer tests are negative. There is discomfort , but no laxity with varus and valgus stressing. The proximal midfoot is swollen and tender to palpation. There is no swelling or discomfort of the ankle. The skin is intact and there is no ligamentous instability. There is no fifth metatarsal tenderness. There is no calf or tibia/fibular tenderness. There is no visual deformity. The foot and toes are warm and well-perfused. Dorsalis pedis pulse 2+. Sensation to pain and light touch is intact. Capillary refill less than 2 seconds. RADIOLOGY: R FOOT MIN 3 VIEWS ROUTINE CLINICAL HISTORY: 71 years-old Female presenting with right foot pain, fall. TECHNIQUE: Frontal, oblique, and lateral views the right foot were obtained. COMPARISON: None. FINDINGS: Mild diffuse soft tissue swelling suggested. Focal soft tissue swelling over the dorsum of the midfoot. Degenerative changes noted in the midfoot and also suggested at the ankle mortise. Small enthesophyte at the origin of the plantar fascia. No acute fracture or malalignment. Incidental note made of Symphalangism of the middle and distal phalanges of the fifth toe. IMPRESSION: 1. No acute osseous injury. 2. Degenerative changes in the midfoot. 3. Nonspecific soft tissue swelling. Electronically signed by: Davide Murphy M.D. 10/03/2017 5:18 PM Dictated Date/Time: 10/03/2017 5:17 PM L KNEE 3 VIEWS CLINICAL HISTORY: 71 years-old Female presenting with left knee pain, fall. TECHNIQUE: Frontal, lateral, and sunrise views of the left knee were obtained. COMPARISON: None. FINDINGS: Knee joint congruent. Tricompartmental degenerative changes most severe in the medial compartment, where there is osteophytosis and mild to moderate joint space loss. Enthesophyte noted at the insertion of the quadriceps tendon. Suggestion of a small knee joint effusion. No patellar subluxation. No acute fracture or malalignment. IMPRESSION: 1. Tricompartmental degenerative changes most severe in the medial compartment. 2. No evidence of acute osseous injury. 3. Suspected knee joint effusion. Electronically signed by: Davide Murphy M.D. 10/03/2017 5:17 PM Dictated Date/Time: 10/03/2017 5:15 PM [~ rep ct add3]] L FOOT MIN 3 VIEWS ROUTINE CLINICAL HISTORY: 71 years-old Female presenting with left foot pain. TECHNIQUE: Frontal, oblique, and lateral views of the left foot were obtained. COMPARISON: Comparison made to plain radiographs of the right foot performed the same day. FINDINGS: Mild diffuse soft tissue swelling suggested. Osteopenia. Incidental no made of an os peroneum. Enthesophytes at the insertion of the Achilles tendon and origin of the plantar fascia. Osteophytosis at the midfoot-forefoot articulation. No acute fracture or malalignment. Incidental note made of symphalangism of the colon distal phalanges of the fifth toe. IMPRESSION: No acute osseous injury. Electronically signed by: Davide Murphy M.D. 10/03/2017 6:05 PM Dictated Date/Time: 10/03/2017 6:04 PM EMERGENCY DEPARTMENT COURSE: I examined the patient. X-rays of the right foot and left knee were reviewed by myself and read by radiology and reveal no acute fractures. Dr. Lyon and I discussed the findings with the patient at bedside. She is now complaining of left foot pain. The left foot was evaluated and she is exhibiting extreme tenderness at the proximal aspect of the dorsal foot. There is no ecchymosis, edema, or erythema. X-ray of the left foot was performed and reviewed by myself and radiologist as above. I discussed with the patient options for mobilization. I discussed with her options for the knee immobilizer or postop shoes. She is agreeable to the immobilizer, but states she feels that wearing sneakers will be appropriate immobilization for the bilateral foot pain. I do feel that this is reasonable. I recommended a walker, and apparently the patient refused the walker per nursing staff. The patient was visualized by nursing staff ambulating down the hallway to go to the bathroom. The patient was placed in a knee immobilizer under my direction and the position was satisfactory. The patient states she has Voltaren gel at home and asks if she can use this for her pain. I agreed with that plan and offered to provide her with a prescription and she declines. She was medicated with Tylenol here in the emergency department for pain. All questions answered to patient's satisfaction prior to discharge. Discharge instructions reviewed, the patient was discharged home in good condition. I attest that I have personally reviewed the patient's current medication list. Patient was found to have normal blood pressure on screening and does not require follow-up. Etiologies such as soft tissue injury, fracture, dislocation, neurovascular compromise, compartment syndrome, as well as others were entertained. DIAGNOSIS: Left knee sprain, bilateral foot contusion The chart was completed utilizing Dragon Speech voice recognition software. Grammatical errors, random word insertions, pronoun errors, and incomplete sentences are an occasional consequence of this system due to software limitations, ambient noise, and hardware issues. Any formal questions or concerns about the content, text, or information contained within the body of this dictation should be directly addressed to the provider for clarification. 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 Surgical Problems: (1) History of cholecystectomy Status: Chronic (2) History of ovarian cystectomy Status: Chronic (3) History of tonsillectomy and adenoidectomy Status: Chronic Current/Historical Medications Scheduled Atorvastatin (Lipitor), 20 MG PO HS Bupropion (Wellbutrin Sr), 150 MG PO BID Clopidogrel (Plavix), 75 MG PO QAM Escitalopram Oxalate (Escitalopram Oxalate), 20 MG PO DAILY Ekyzlnxnqmd-Tfxllobesgc-Mmb-Vi (Flexi Joint), 1 TAB PO DAILY Levothyroxine Sodium (Synthroid), 112 MCG PO DAILYBB Allergies Coded Allergies: Erythromycin (Verified Allergy, Intermediate, N/V/ABD PAIN, 10/03/17) Vital Signs Date Time Temp Pulse Resp B/P (MAP) Pulse Ox O2 Delivery O2 Flow Rate FiO2 10/03/17 18:23 76 16 148/93 96 Room Air 10/03/17 16:46 36.6 68 20 137/85 98 Room Air Medications Administered Medications (Trade) Dose Ordered Sig/Velia Route Start Time Stop Time Status Last Admin Dose Admin Acetaminophen (Tylenol Tab) 1,000 mg NOW STAT PO 10/03/17 16:57 10/03/17 16:59 DC 10/03/17 17:14 1,000 MG Departure Information Impression Primary Impression: Fall Additional Impressions: Left knee sprain Contusion of right foot Contusion of left foot Dispostion Home / Self-Care Condition GOOD Referrals Veronica MaganaPKyle (PCP) [facility] Patient Instructions ED Contusion Foot, ED Sprain Knee, [facility] Additional Instructions You have been treated in the Emergency Department for Knee and foot pain. For pain control, you can use the following [id number]-vsi-adhnikd medicines (if >12 yo): Acetaminophen(Tylenol) may be used for fever or pain. Use 1000mg every six hours as needed. Avoid using more than 3000mg in a 24 hour period. Use the Voltaren gel you have at home to help with inflammation and pain. If this is a recent injury (<24 hrs), ice can be applied to the area of pain for the first 3 days to help decrease pain and inflammation. Ice massages can be performed by freezing water in a paper cup, peeling back the cup to expose the ice and then massaging over the affected area. You have been provided the number for an Orthopaedic Surgeon. You should call this number as soon as possible to establish a follow-up visit from today's Emergency Department visit. Where good, supportive shoes to help with the foot pain. Keep the knee immobilizer in place until cleared by Orthopedics. Use the walker you have been provided to keep as much weight off of the knee as possible until weight bearing is tolerable. Return to the Emergency Department if your current symptoms worsen despite treatment course outlined above. Problem Qualifiers Primary Impression: Fall Encounter type: initial encounter Qualified Codes: W19.XXXA - Unspecified fall, initial encounter Additional Impressions: Left knee sprain Encounter type: initial encounter Involved ligament of knee: unspecified ligament Qualified Codes: S83.92XA - Sprain of unspecified site of left knee, initial encounter Contusion of right foot Encounter type: initial encounter Qualified Codes: S90.31XA - Contusion of right foot, initial encounter Contusion of left foot Encounter type: initial encounter Qualified Codes: S90.32XA - Contusion of left foot, initial encounter
== END 2017-10-03 18:40 | disposition home or self-care (01) ==
LOC: C.EDB 16:41 → C.EDD 18:40
DX: S83.92XA Sprain of unspecified site of left knee, initial encounter (principal); S90.31XA Contusion of right foot, initial encounter; S90.32XA Contusion of left foot, initial encounter; W01.0XXA Fall on same level from slipping, tripping and stumbling without subsequent striking against object, initial encounter; Y92.018 Other place in single-family (private) house as the place of occurrence of the external cause; F41.9 Anxiety disorder, unspecified; F32.9 Major depressive disorder, single episode, unspecified; E03.9 Hypothyroidism, unspecified; Z79.899 Other long term (current) drug therapy; Z88.1 Allergy status to other antibiotic agents